=== PATIENT | male | born 1990 | race Caucasian/White ===

== ENCOUNTER 2020-11-26 19:14 | Emergency (ER) | payer OTHER, SELFPAY ==
[2020-11-26 19:28] VITALS: BP 123/83; PULSE 76; RESP 18; TEMP 37; O2SAT 97
--- NOTE | 2020-11-26 20:03 | ED.URI ---
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 Patient states he had a rapid Covid test done earlier in the week. He now has 1/2-week history of measured fever to 101, cough and nasal congestion associated with myalgias including headache, fleeting chest pains. Patient has a generally positive review of systems commenting he has wheezing [which is actually upper airway ], loss of taste/smell [actually decreased but still present ]; he has no vomiting/diarrhea, S OB, vomiting/diarrhea, rash. Symptoms are mild and he requests refill of inhaler Related Data Home Medications Medication Instructions Recorded Confirmed alprazolam 0.5 mg PO TID 11/26/20 11/26/20 Allergies Allergy/AdvReac Type Severity Reaction Status Date / Time amoxicillin Allergy Unknown Other Verified 11/26/20 19:50 Review of Systems Review of Systems: General/Constitutional: No weight loss, REPORTS fever Eyes: N0: Redness,discharge Ears/Nose/Throat: No: Epistaxis,ear discharge Respiratory: Denies: Hemoptysis Gastrointestinal: No Vomiting, Bleeding-rectal Skin: No Lumps, eruption Neurologic: No Focal Weakness,Sz Hematologic: Denies: Petechiae/Purpura Psychiatric: No: Suicida ideationl All Other Systems: Reviewed and Negative PMFSH Social History Social History Gender identity (if verbalized by the patient): Male Comments At time of signature, agree with nursing past medical, surgical, social and family history. There is no relevant family history pertinent to the presenting complaint Exam Narrative: General Appearance: Well appearing, Well nourished EYE: PERRLA, Conjunctiva clear Ears: Auditory canal normal, TM normal Nose: Rhinorrhea, Mucousal erythema Mouth/Throat: MM moist, Uvula midline, Pharyngeal erythema Neck: Supple, No adenopathy Respiratory: No respiratory distress, Breath sounds equal, CTA with transmitted upper airway sounds Cardiovascular: RRR, No JVD Musculoskeletal: Non tender, Normal strength Skin: Warm, Dry Neurological: A&O x3, CN II-XII intact Psychiatric: Slightly anxious/apprehensive mood, Normal affect Course Vital Signs Vital signs: Vital Signs Temperature 98.6 F 11/26/20 19:28 Pulse Rate 76 11/26/20 19:28 Respiratory Rate 18 11/26/20 19:28 Blood Pressure 123/83 11/26/20 19:28 Pulse Oximetry 97 11/26/20 19:28 Temperature 98.6 F 11/26/20 19:28 Pulse Rate 76 11/26/20 19:28 Respiratory Rate 18 11/26/20 19:28 Blood Pressure 123/83 11/26/20 19:28 Pulse Oximetry 97 11/26/20 19:28 MDM - URI/Sore Throat Lab Data Labs: Lab Results 11/26/20 Range/Units 19:45 POC SARS CoV-2 Ag Negative (Negative) Discharge Plan Discharge Clinical Impression: Influenza-like illness Patient Disposition: Home, Self-Care Condition: Stable Instructions: Acute Bronchitis (ED) Prescriptions: New azithromycin 250 mg tablet See Rx Instructions .ROUTE .COMPLEX Qty: 6 RF: 0 codeine-guaifenesin 10-100 mg/5 mL liquid 7.5 ml PO TID PRN (Reason: cough) Qty: 118 RF: 0 azelastine 137 mcg (0.1 %) aerosol,spray 137 mcg NASAL Q12H Qty: 30 RF: 0 albuterol sulfate [Ventolin HFA] 90 mcg/actuation HFA aerosol inhaler 2 puff INHALATION QID PRN (Reason: shortness of breath or wheezing) Qty: 8.5 RF: 1 No Action alprazolam 0.5 mg tablet 0.5 mg PO TID RF: 0 Follow-up/Referrals: Greg Aguayo MD [Primary Care Provider] - Stand Alone Forms: Work/School Release IP
== END 2020-11-26 20:25 | disposition home or self-care (01) ==
PROVIDERS: Emergency Provider Emergency Medicine; PCP Family Medicine Adolescent Medicine
DX: J11.1 Influenza due to unidentified influenza virus with other respiratory manifestations (principal); Z20.822 Contact with and (suspected) exposure to COVID-19; F41.1 Generalized anxiety disorder
CPT/HCPCS: 87426; 99213; C9803; G0463

== ENCOUNTER → 2020-11-28 08:13 | Outpatient (CLI) | payer OTHER, SELFPAY ==
[2020-11-28 23:32] LABS: SARS-CoV-2 RNA PCR Negative
== END ==
PROVIDERS: PCP Family Medicine Adolescent Medicine; Visit Provider Emergency Medicine
DX: J40 Bronchitis, not specified as acute or chronic (principal); Z20.822 Contact with and (suspected) exposure to COVID-19
CPT/HCPCS: C9803; U0003; U0005

== ENCOUNTER 2021-01-05 17:44 | Emergency (ER) | payer OTHER, SELFPAY ==
[2021-01-05 17:56] VITALS: BP 129/81; PULSE 77; RESP 18; TEMP 37.3; O2SAT 100
--- NOTE | 2021-01-05 18:12 | ED.GENADULT ---
HPI - General Adult General Chief complaint: Medical Clearance Stated complaint: Medication Refill Time Seen by Provider: 01/05/21 18:06 Source: patient and RN notes reviewed Mode of arrival: ambulatory Limitations: no limitations History of Present Illness HPI narrative: Patient presents today requesting a refill of his alprazolam 0.5 mg. He will run out tonight. He is going to call his doctor tomorrow and see if he can get a refill. He takes 0.5 mg 3 times daily and has been taking it for about 5 years. States his doctor has not tried him on anything else for his anxiety besides the alprazolam. MD complaint: Medication refill Related Data Home Medications Medication Instructions Recorded Confirmed alprazolam 0.5 mg PO TID 11/26/20 01/05/21 Allergies Allergy/AdvReac Type Severity Reaction Status Date / Time amoxicillin Allergy Unknown Other Verified 01/05/21 17:56 Review of Systems Review of Systems: CONSTITUTIONAL: Denies body aches, fever, chills, or sweats. EYES: Denies visual changes, redness, or discharge. ENT: Denies rhinorrhea, congestion, sore throat, or otalgia. CARDIOVASCULAR: Denies chest pain, palpitations, or edema. RESPIRATORY: Denies cough or dyspnea. GASTROINTESTINAL: Denies abdominal pain, nausea, vomiting, or diarrhea. GENITOURINARY: Denies dysuria or hematuria. SKIN: Denies rash, itching, or wounds. MUSCULOSKELETAL: Denies back pain, joint pain, or myalgia. NEUROLOGIC: Denies headache, numbness, tingling, or weakness. PSYCH: + anxiety. PMFSH Past Medical History Medical History (Updated 01/05/21 @ 18:16 by Bernice Avendano, CURRICULUM AND INSTRUCTION DIRECTOR, ) Generalized anxiety disorder Generalized anxiety disorder Social History Social History Gender identity (if verbalized by the patient): Male Comments At time of signature, I have reviewed and agree with nursing past medical, surgical, social and family history unless otherwise noted. Please see nursing chart for further information. There is no relevant family history pertinent to the presenting complaint Exam Narrative: GENERAL: Well-appearing, well-nourished, and in no acute distress. HEAD: Normocephalic, atraumatic. EYES: EOMI. No redness or drainage. Conjunctivae normal. ENT: Mucous membranes pink and moist. NECK: Normal AROM. CHEST: No respiratory distress. EXTREMITIES: Normal range of motion. No edema. SKIN: Warm, dry, no rash. Capillary refill normal. Normal skin turgor. NEURO: No focal deficits. Alert and oriented x3. Gait steady. PSYCH: Normal affect. No signs of depression or anxiety. Course Course Emergency Course: Discussed with patient that there are many other options of medications to try for anxiety besides benzodiazepines. Will refill a short prescription to get him to next week if needed. Patient states he will talk to his doctor about other options as he does not want to stay on alprazolam forever. Vital Signs Vital signs: Vital Signs Temperature 99.2 F 01/05/21 17:56 Pulse Rate 77 01/05/21 17:56 Respiratory Rate 18 01/05/21 17:56 Blood Pressure 129/81 01/05/21 17:56 Pulse Oximetry 100 01/05/21 17:56 Temperature 99.2 F 01/05/21 17:56 Pulse Rate 77 01/05/21 17:56 Respiratory Rate 18 01/05/21 17:56 Blood Pressure 129/81 01/05/21 17:56 Pulse Oximetry 100 01/05/21 17:56 Reviewed. Pt has been instructed to follow up with his PCP regarding his elevated blood pressure today. Medical Decision Making Differential Diagnosis Differential Diagnosis: Anxiety, medication refill Vital Signs Vital Signs: Vital Signs Temperature 99.2 F 01/05/21 17:56 Pulse Rate 77 01/05/21 17:56 Respiratory Rate 18 01/05/21 17:56 Blood Pressure 129/81 01/05/21 17:56 Pulse Oximetry 100 01/05/21 17:56 Temperature 99.2 F 01/05/21 17:56 Pulse Rate 77 01/05/21 17:56 Respiratory Rate 18 01/05/21 17:56 Blood Pressure
== END 2021-01-05 18:18 | disposition home or self-care (01) ==
PROVIDERS: Emergency Provider Nurse Practitioner; PCP Family Medicine Adolescent Medicine
DX: F41.1 Generalized anxiety disorder (principal)
CPT/HCPCS: 99211; G0463

== ENCOUNTER 2023-10-30 17:55 | Emergency (ER) | payer BC, SELFPAY ==
[2023-10-30 18:06] VITALS: BP 127/76; PULSE 68; RESP 16; TEMP 37.6; O2SAT 100
--- NOTE | 2023-10-30 18:28 | ED.HA ---
HPI - Headache General Chief Complaint: Headache Stated Complaint: headache Time Seen by Provider: 10/30/23 18:13 Source: patient and RN notes reviewed Mode of arrival: ambulatory Limitations: no limitations History of Present Illness HPI Narrative: Patient presents today with a 2 day history of frontal headache that extends into both eyes with mild nausea, photophobia, phonophobia. Symptoms have worsened since last night. Denies vision changes, dizziness or lightheadedness, numbness or tingling in the extremities, weakness. No recent illness or fever. He has tried some [id number] medication without relief and currently rates his pain 8/10. States this is his worst headache ever. No history of migraines or chronic headaches. Related Data Home Medications Medication Instructions Recorded Confirmed alprazolam 0.5 mg tablet 0.5 mg PO TID 10/30/23 10/30/23 Allergies Allergy/AdvReac Type Severity Reaction Status Date / Time amoxicillin Allergy Unknown Other Verified 10/30/23 18:00 Review of Systems Review of Systems: CONSTITUTIONAL: Denies body aches, fever, chills, or sweats. EYES: Denies visual changes, redness, or discharge.+ photophobia ENT: Denies rhinorrhea, congestion, sore throat, or otalgia.+ phonophobia CARDIOVASCULAR: Denies chest pain, palpitations, or edema. RESPIRATORY: Denies cough or dyspnea. GASTROINTESTINAL: Denies abdominal pain, nausea, vomiting, or diarrhea. GENITOURINARY: Denies dysuria or hematuria. SKIN: Denies rash, itching, or wounds. MUSCULOSKELETAL: Denies back pain, joint pain, or myalgia. NEUROLOGIC: Denies numbness, tingling, or weakness.+ severe headache PSYCH: Denies depression or anxiety. [facility] Past Medical History Medical History Generalized anxiety disorder Generalized anxiety disorder Family History Family History Grandparent Lung cancer Social History Social History Years smoked: 10 Smoking status: Current every day smoker Tobacco type: cigarettes Second hand tobacco smoke exposure: No Alcohol intake: current Alcohol use details: Socially Substance use: current Substance use type: does not use Living arrangements: with family Occupation/Education: occupation Gender identity (if verbalized by the patient): Male Spiritual care concerns: No Agree to blood products: Yes Comments At time of signature, I have reviewed and agree with nursing past medical, surgical, social and family history unless otherwise noted. Please see nursing chart for further information. There is no relevant family history pertinent to the presenting complaint Exam Narrative: GENERAL: well-nourished, [id number] pain distress. HEAD: Normocephalic, atraumatic. EYES: EOMI. PERRL. Patient able to open eyes for only short periods of time due to photophobia. No redness or drainage. Conjunctivae normal. ENT: Mucous membranes pink and moist. Nares clear. No rhinorrhea. NECK: Normal AROM. Supple. No lymphadenopathy. CHEST: No respiratory distress. Clear to auscultation. HEART: Regular rate and rhythm. No murmur appreciated. Normal peripheral pulses. EXTREMITIES: Normal range of motion. No edema. 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 SKIN: Warm, dry, no rash. Capillary refill normal. Normal skin turgor. NEURO: No focal deficits. Alert and oriented x3. Gait steady. PSYCH: Normal affect. No signs of depression or anxiety. Course Course Level of Care: Express Care Visit Vital Signs Vital signs: Vital Signs Temperature 99.7 F H 10/30/23 18:06 Pulse Rate 68 10/30/23 18:06 Respiratory Rate 16 10/30/23 18:06 Blood Pressure 127/76 10/30/23 18:06 Pulse Oximetry 100 10/30/23 18:06 Oxygen Delivery Room Air 10/30/23 18:06 Temperature 99.7 F H 10/30/23
== END 2023-10-30 18:29 | disposition short-term general hospital (02) ==
PROVIDERS: Emergency Provider Nurse Practitioner; PCP Family Medicine Adolescent Medicine
DX: R51.9 Headache, unspecified (principal); F17.210 Nicotine dependence, cigarettes, uncomplicated; F41.1 Generalized anxiety disorder
CPT/HCPCS: 99213; G0463

== ENCOUNTER 2023-10-30 18:40 | Emergency (ER) | payer BC, SELFPAY ==
--- NOTE | ~2023-10-30 | CT_ITS ---
EXAMINATION: CT brain wo con DATE: 10/30/2023 19:53 INDICATION: New onset headache TECHNIQUE: Computed tomography (CT) of the head was performed without intravenous contrast. Sagittal and coronal reconstructions were performed. The mA was adjusted according to patient size. Iterative reconstruction technique was employed. The dose-length product was 681.00 mGy-cm. COMPARISON: None FINDINGS: No acute intracranial hemorrhage, acute infarction or abnormal extra axial fluid collection. Ventricl es are normal and symmetric. No mass/mass effect. Linear likely scarring along the paramedian right f rontal scalp. The orbits, paranasal sinuses and mastoid air cells are normal. IMPRESSION: 1. Normal brain. No acute intracranial process. Reviewed, dictated and finalized at location A.
[2023-10-30 18:41] VITALS: BP 130/78; PULSE 68; RESP 16; TEMP 37.3; O2SAT 100
[2023-10-30 20:58] VITALS: BP 123/86; PULSE 83; RESP 18; O2SAT 100
--- NOTE | 2023-10-30 23:02 | PC.NURSE ---
patients mom stated that they have waited 6 hours(actual wait 3hours 47 min) and we couldnt get our act together in that amount of time and left
== END 2023-10-30 23:02 | disposition left against medical advice (07) ==
PROVIDERS: Emergency Provider Physician Assistant; PCP Family Medicine Adolescent Medicine
DX: R51.9 Headache, unspecified (principal)
CPT/HCPCS: 70450; 99199